=== PATIENT | female | born 1975 | race African-American/Black ===

== ENCOUNTER 2022-03-26 19:24 | Inpatient (IN) | payer BC ==
[2022-03-26] MEDS ORDERED: METOCLOPRAMIDE HCL INJECTION 10 MG/2 ML VIAL IVPUSH ONE (23:17)
[2022-03-26] MEDS ORDERED: ACETAMINOPHEN 1000 MG/100 ML BAG IVPB ONE (23:18)
[2022-03-26] MEDS ORDERED: SODIUM CHLORIDE 0.9% 500 ML INFUS.BAG IV ONE (23:18)
[2022-03-26 23:49] LABS: HEMATOCRIT 41.9 % (32.4-45.2); HEMOGLOBIN 14.5 GM/dL (10.7-15.3); MCHC 34.5 g/dl (32.0-36.0); MEAN CELL VOLUME 112.9 fl (80-96); MEAN PLT VOLUME 8.8 fl (7.5-11.1); PLATELET COUNT 188 10^3/uL (134-434); RBC 3.71 M/mm3 (3.60-5.2); RDW 16.4 % (11.6-15.6); WHITE BLOOD COUNT 6.2 K/mm3 (4.0-10.0)
[2022-03-27 00:26] LABS: CALCIUM 8.9 mg/dL (8.5-10.1)
[2022-03-27 00:27] LABS: ALBUMIN 3.4 g/dl (3.4-5.0); BLOOD UREA NITROGEN 12.4 mg/dL (7-18)
[2022-03-27 00:30] LABS: CREATININE 0.7 mg/dL (0.55-1.3)
[2022-03-27 00:31] LABS: BILIRUBIN,TOTAL 2.8 mg/dL (0.2-1); TOT PROT 7.7 g/dl (6.4-8.2)
[2022-03-27] MEDS ORDERED: MECLIZINE HCL 25 MG TABLET (FP) PO ONE (02:13)
[2022-03-27 04:48] LABS: EPI CELLS 17 /uL (0-25.1); HYALINE CASTS 5 /uL (0-3.1); URINE APPEARANCE CLEAR; URINE BILIRUBIN 2+ (NEGATIVE); URINE COLOR DK YELLOW; URINE GLUCOSE (UA) NEGATIVE (NEGATIVE); URINE KETONE TRACE (NEGATIVE); URINE LEUK ESTERASE TRACE (NEGATIVE); URINE NITRITE POSITIVE (NEGATIVE); URINE PROTEIN 2+ (NEGATIVE); URINE WBC 9 /uL (0-25.8)
[2022-03-27 05:26] LABS: INR 1.95 (0.83-1.09); PROTHROMBIN TIME (PATIENT) 22.6 SEC (9.7-13.0)
[2022-03-27 05:28] LABS: ACTIVATED PTT 28.4 SECONDS (25.2-36.5)
[2022-03-27 07:21] LABS: URINE RBC 30.9 /uL (0-23.9)
[2022-03-27 08:31] LABS: BILIRUBIN,DIRECT 1.5 mg/dL (0.0-0.2)
[2022-03-27] MEDS ORDERED: CEFTRIAXONE 1,000 MG in DEXTROSE 5%-WATER - 50 ML IVPB ONE (08:49)
[2022-03-27] MEDS ORDERED: CEFTRIAXONE 1 GM/50 ML BAG ONE (09:00)
[2022-03-27] MEDS ORDERED: ONDANSETRON 8 MG TABLET (FP) PO PRN (11:04)
[2022-03-27 11:05] LABS: BILIRUBIN,DIRECT 1.6 mg/dL (0.0-0.2)
[2022-03-27] MEDS ORDERED: NAPROXEN 250 MG TABLET PO PRN (11:08)
[2022-03-27] MEDS ORDERED: ACETYLCYSTEINE INJECTION 20% 11,400 MG in DEXTROSE 5%-WATER - 250 ML IVPB ONE (11:15)
[2022-03-27] MEDS ORDERED: ONDANSETRON *ODT* 4 MG TABLET SL PRN (11:24)
[2022-03-27] MEDS ORDERED: ACETYLCYSTEINE INJECTION 20% 3,800 MG in DEXTROSE 5%-WATER - 500 ML IVPB ONE (12:30)
[2022-03-27 12:34] LABS: ALBUMIN 3.2 g/dl (3.4-5.0); BLOOD UREA NITROGEN 11.5 mg/dL (7-18); CALCIUM 8.3 mg/dL (8.5-10.1)
[2022-03-27 12:37] LABS: BILIRUBIN,DIRECT 1.6 mg/dL (0.0-0.2); CREATININE 0.6 mg/dL (0.55-1.3)
[2022-03-27 12:39] LABS: BILIRUBIN,TOTAL 2.5 mg/dL (0.2-1); TOT PROT 7.1 g/dl (6.4-8.2)
[2022-03-27] MEDS ORDERED: PHYTONADIONE 10 MG/1 ML AMP IVPB ONE (13:45)
[2022-03-27] MEDS ORDERED: MECLIZINE HCL 12.5 MG TABLET ONE (13:54)
[2022-03-27] MEDS ORDERED: ONDANSETRON *ODT* 4 MG TABLET ONE (13:54)
[2022-03-27] MEDS: MECLIZINE HCL 12.5 MG TABLET PO SCH ×2 (13:58→23:09)
[2022-03-27] MEDS ORDERED: PHYTONADIONE 10 MG/1 ML AMP ONE (14:01)
[2022-03-27 15:24] LABS: BASO % 0.7 % (0-2.0); EOS % 5.6 % (0-4.5); HEMATOCRIT 40.9 % (32.4-45.2); LYMPH % 17.1 % (8-40); MCH 39.1 pg (25.7-33.7); MCHC 34.3 g/dl (32.0-36.0); MEAN CELL VOLUME 113.9 fl (80-96); MONO % 5.7 % (3.8-10.2); NEUT % 70.9 % (42.8-82.8); PLATELET COUNT 177 10^3/uL (134-434); RBC 3.59 M/mm3 (3.60-5.2); RDW 16.5 % (11.6-15.6); WHITE BLOOD COUNT 4.4 K/mm3 (4.0-10.0)
[2022-03-27 15:31] LABS: INR 1.87 (0.83-1.09); PROTHROMBIN TIME (PATIENT) 21.6 SEC (9.7-13.0)
[2022-03-27 15:50] LABS: ANISOCYTOSIS 2+; MACROCYTOSIS 2+
[2022-03-27] MEDS ORDERED: ACETYLCYSTEINE INJECTION 20% 7,600 MG in DEXTROSE 5%-WATER - 1,000 ML IVPB ONE (16:30)
[2022-03-27] MEDS ORDERED: PANTOPRAZOLE 40 MG TABLET PO ONE (18:06)
[2022-03-27] MEDS: PANTOPRAZOLE 40 MG TABLET PO SCH (18:27)
[2022-03-28] MEDS: MECLIZINE HCL 12.5 MG TABLET PO SCH ×3 (05:49→21:55)
[2022-03-28] MEDS: PANTOPRAZOLE 40 MG TABLET PO SCH (10:04)
[2022-03-28 10:06] LABS: BASO % 0.5 % (0-2.0); EOS % 7.1 % (0-4.5); HEMOGLOBIN 12.7 GM/dL (10.7-15.3); MCH 38.5 pg (25.7-33.7); MCHC 33.5 g/dl (32.0-36.0); MEAN CELL VOLUME 115.1 fl (80-96); MEAN PLT VOLUME 9.7 fl (7.5-11.1); MONO % 10.7 % (3.8-10.2); NEUT % 44.7 % (42.8-82.8); PLATELET COUNT 143 10^3/uL (134-434); RDW 16.9 % (11.6-15.6); WHITE BLOOD COUNT 3.6 K/mm3 (4.0-10.0)
[2022-03-28 10:12] LABS: INR 1.56 (0.83-1.09)
[2022-03-28 10:30] LABS: CHLORIDE 103 mmol/L (98-107); SODIUM 139 mmol/L (136-145)
[2022-03-28 10:33] LABS: ALBUMIN 2.6 g/dl (3.4-5.0)
[2022-03-28 10:36] LABS: BILIRUBIN,DIRECT 1.1 mg/dL (0.0-0.2)
[2022-03-28 10:38] LABS: BILIRUBIN,TOTAL 1.8 mg/dL (0.2-1); TOT PROT 6.1 g/dl (6.4-8.2)
[2022-03-28 10:43] LABS: CALCIUM 8.1 mg/dL (8.5-10.1)
[2022-03-28 10:44] LABS: ALBUMIN 2.7 g/dl (3.4-5.0); BLOOD UREA NITROGEN 5.1 mg/dL (7-18); CO2 24 mmol/L (21-32); GLUCOSE,RANDOM 100 mg/dL (74-106); MAGNESIUM 1.6 mg/dL (1.8-2.4)
[2022-03-28 10:47] LABS: CREATININE 0.5 mg/dL (0.55-1.3); PHOSPHOROUS 2.5 mg/dL (2.5-4.9); SGOT/AST 866 U/L (15-37)
[2022-03-28 10:48] LABS: BILIRUBIN,TOTAL 1.9 mg/dL (0.2-1); TOT PROT 6.2 g/dl (6.4-8.2)
[2022-03-28 10:50] LABS: ALK PHOS 85 U/L (45-117); SGPT/ALT 687 U/L (13-61)
[2022-03-28 10:55] LABS: ANION GAP 12 MMOL/L (8-16)
[2022-03-28 12:43] LABS: OPIATES, URI NEGATIVE (NEGATIVE); PHENCYCLIDINE,URINE NEGATIVE (NEGATIVE); URINE BARBITURATES NEGATIVE (NEGATIVE)
[2022-03-28 12:44] LABS: COCAINE, UR NEGATIVE (NEGATIVE); METHADONE, UR NEGATIVE (NEGATIVE); URINE AMPHETAMINES NEGATIVE (NEGATIVE)
[2022-03-28 12:45] LABS: URINE BENZODIAZEPINES NEGATIVE (NEGATIVE)
[2022-03-28] MEDS: KCL 10 MEQ IVPB 10 MEQ/100 ML INFUS.BAG IVPB SCH ×3 (12:54→17:57)
[2022-03-28] MEDS ORDERED: KCL 10 MEQ IVPB 10 MEQ/100 ML INFUS.BAG IVPB SCH (17:45)
[2022-03-29] MEDS: MECLIZINE HCL 12.5 MG TABLET PO SCH ×3 (06:29→21:39)
[2022-03-29] MEDS: PANTOPRAZOLE 40 MG TABLET PO SCH (09:33)
[2022-03-29 09:56] LABS: INR 1.29 (0.83-1.09); PROTHROMBIN TIME (PATIENT) 14.9 SEC (9.7-13.0)
[2022-03-29 10:18] LABS: ALBUMIN 2.7 g/dl (3.4-5.0)
[2022-03-29 10:20] LABS: TOT PROT 6.2 g/dl (6.4-8.2)
[2022-03-29 10:29] LABS: BILIRUBIN,DIRECT 0.7 mg/dL (0.0-0.2)
[2022-03-29 23:07] LABS: HCV ALPHA 2 MACRO CHART 249 mg/dL (110-276)
[2022-03-30] MEDS: MECLIZINE HCL 12.5 MG TABLET PO SCH ×3 (06:27→21:07)
[2022-03-30 12:25] LABS: CALCIUM 8.3 mg/dL (8.5-10.1)
[2022-03-30 12:26] LABS: ALBUMIN 2.9 g/dl (3.4-5.0); BLOOD UREA NITROGEN 5.4 mg/dL (7-18)
[2022-03-30 12:29] LABS: BILIRUBIN,DIRECT 0.5 mg/dL (0.0-0.2); CREATININE 0.6 mg/dL (0.55-1.3)
[2022-03-30 12:31] LABS: TOT PROT 6.7 g/dl (6.4-8.2)
[2022-03-30 12:32] LABS: BILIRUBIN,TOTAL 1.1 mg/dL (0.2-1)
[2022-03-30 19:03] VITALS: BMI 27.7
[2022-03-31] MEDS: MECLIZINE HCL 12.5 MG TABLET PO SCH ×3 (05:57→21:00)
[2022-03-31] MEDS ORDERED: SODIUM CHLORIDE 500 ML IV STA ×3 (07:33→20:22)
[2022-03-31] MEDS ORDERED: POLYETHYLENE GLYCOL (HEALTHYLAX) 3350 17 GM PACKET PO SCH (09:49)
[2022-03-31 11:29] LABS: ALBUMIN 2.5 g/dl (3.4-5.0); BLOOD UREA NITROGEN 6.8 mg/dL (7-18); CALCIUM 8.3 mg/dL (8.5-10.1)
[2022-03-31 11:32] LABS: CREATININE 0.4 mg/dL (0.55-1.3)
[2022-03-31 11:34] LABS: BILIRUBIN,TOTAL 0.8 mg/dL (0.2-1); TOT PROT 5.8 g/dl (6.4-8.2)
[2022-04-01] MEDS: MECLIZINE HCL 12.5 MG TABLET PO SCH (05:52)
[2022-04-01] MEDS: LACTATED RINGERS SOLUTION 1,000 ML/1,000 ML INFUS.BAG IV SCH (11:20)
[2022-04-01] MEDS ORDERED: FAMOTIDINE 20 MG/50 ML IVPB 20 MG/50 ML MG IVPB ONE (22:41)
[2022-04-01] MEDS: POLYETHYLENE GLYCOL (HEALTHYLAX) 3350 17 GM PACKET PO SCH (22:48)
[2022-04-02] MEDS ORDERED: COSYNTROPIN 0.25 MG VIAL IVPUSH ONE (09:00)
[2022-04-02] MEDS: LACTATED RINGERS SOLUTION 1,000 ML/1,000 ML INFUS.BAG IV SCH (09:09)
[2022-04-02] MEDS: POLYETHYLENE GLYCOL (HEALTHYLAX) 3350 17 GM PACKET PO SCH ×2 (09:10→23:02)
[2022-04-02 13:30] LABS: ALBUMIN 2.6 g/dl (3.4-5.0)
[2022-04-02 13:33] LABS: BILIRUBIN,DIRECT 0.3 mg/dL (0.0-0.2)
[2022-04-02 13:35] LABS: BILIRUBIN,TOTAL 0.7 mg/dL (0.2-1); TOT PROT 5.9 g/dl (6.4-8.2)
[2022-04-02] MEDS ORDERED: PANTOPRAZOLE 40 MG TABLET PO ONE (17:23)
[2022-04-02] MEDS ORDERED: FAMOTIDINE 20 MG TABLET PO SCH (17:30)
[2022-04-03] MEDS: POLYETHYLENE GLYCOL (HEALTHYLAX) 3350 17 GM PACKET PO SCH ×2 (09:07→21:34)
[2022-04-03] MEDS: PANTOPRAZOLE 40 MG TABLET PO SCH (09:08)
[2022-04-03] MEDS ORDERED: PANTOPRAZOLE 40 MG TABLET PO SCH (10:00)
[2022-04-03 18:01] LABS: HEMATOCRIT 33.2 % (32.4-45.2); HEMOGLOBIN 11.1 GM/dL (10.7-15.3); MCH 38.4 pg (25.7-33.7); MCHC 33.4 g/dl (32.0-36.0); MEAN PLT VOLUME 9.7 fl (7.5-11.1); PLATELET COUNT 263 10^3/uL (134-434); RBC 2.89 M/mm3 (3.60-5.2); RDW 16.5 % (11.6-15.6); WHITE BLOOD COUNT 4.5 K/mm3 (4.0-10.0)
[2022-04-03 18:15] LABS: BLOOD UREA NITROGEN 10.2 mg/dL (7-18)
[2022-04-03 18:18] LABS: ALBUMIN 2.7 g/dl (3.4-5.0); CALCIUM 8.9 mg/dL (8.5-10.1); CREATININE 0.5 mg/dL (0.55-1.3)
[2022-04-03 18:20] LABS: BILIRUBIN,TOTAL 0.6 mg/dL (0.2-1); TOT PROT 6.3 g/dl (6.4-8.2)
[2022-04-04 07:53] LABS: EOS % 3.3 % (0-4.5); HEMATOCRIT 31.3 % (32.4-45.2); HEMOGLOBIN 10.4 GM/dL (10.7-15.3); MCH 38.4 pg (25.7-33.7); MCHC 33.4 g/dl (32.0-36.0); MEAN CELL VOLUME 115.1 fl (80-96); MEAN PLT VOLUME 10.2 fl (7.5-11.1); NEUT % 36.7 % (42.8-82.8); PLATELET COUNT 243 10^3/uL (134-434); RBC 2.72 M/mm3 (3.60-5.2); RDW 16.3 % (11.6-15.6); WHITE BLOOD COUNT 4.3 K/mm3 (4.0-10.0)
[2022-04-04 08:25] LABS: CHLORIDE 107 mmol/L (98-107); SODIUM 143 mmol/L (136-145)
[2022-04-04 08:27] LABS: ANION GAP 9 MMOL/L (8-16); BLOOD UREA NITROGEN 8.5 mg/dL (7-18); CALCIUM 8.6 mg/dL (8.5-10.1); CO2 27 mmol/L (21-32); GLUCOSE,RANDOM 82 mg/dL (74-106)
[2022-04-04 08:28] LABS: ALBUMIN 2.5 g/dl (3.4-5.0)
[2022-04-04 08:31] LABS: CREATININE 0.4 mg/dL (0.55-1.3); SGOT/AST 32 U/L (15-37); SGPT/ALT 75 U/L (13-61)
[2022-04-04 08:32] LABS: BILIRUBIN,TOTAL 0.5 mg/dL (0.2-1); TOT PROT 5.8 g/dl (6.4-8.2)
[2022-04-04 08:33] LABS: ALK PHOS 57 U/L (45-117)
[2022-04-04 10:05] LABS: ANISOCYTOSIS 2+; MACROCYTOSIS 2+
[2022-04-04] MEDS: POLYETHYLENE GLYCOL (HEALTHYLAX) 3350 17 GM PACKET PO SCH ×2 (11:18→22:13)
[2022-04-04] MEDS: PANTOPRAZOLE 40 MG TABLET PO SCH (11:18)
[2022-04-04] MEDS: ASPIRIN 81 MG CHEWABLE TABLETS PO SCH (11:18)
[2022-04-04] MEDS ORDERED: METOCLOPRAMIDE HCL INJECTION 10 MG/2 ML VIAL IVPUSH ONE (23:22)
[2022-04-05 07:48] LABS: BASO % 0.7 % (0-2.0); EOS % 2.6 % (0-4.5); HEMATOCRIT 30.5 % (32.4-45.2); HEMOGLOBIN 10.4 GM/dL (10.7-15.3); LYMPH % 40.3 % (8-40); MCH 39.1 pg (25.7-33.7); MCHC 33.9 g/dl (32.0-36.0); MEAN CELL VOLUME 115.3 fl (80-96); MEAN PLT VOLUME 9.7 fl (7.5-11.1); MONO % 9.6 % (3.8-10.2); NEUT % 46.8 % (42.8-82.8); PLATELET COUNT 263 10^3/uL (134-434); RBC 2.65 M/mm3 (3.60-5.2); RDW 16.4 % (11.6-15.6); WHITE BLOOD COUNT 4.5 K/mm3 (4.0-10.0)
[2022-04-05 09:23] LABS: BILIRUBIN,TOTAL 0.5 mg/dL (0.2-1)
[2022-04-05 09:25] LABS: CREATININE 0.5 mg/dL (0.55-1.3)
[2022-04-05 09:27] LABS: ALBUMIN 2.5 g/dl (3.4-5.0); BLOOD UREA NITROGEN 9.5 mg/dL (7-18)
[2022-04-05] MEDS ORDERED: REGADENOSON 0.4 MG/5 ML PRE-FILLED SYRINGE IVPUSH ONE ×2 (09:33→09:45)
[2022-04-05] MEDS: ASPIRIN 81 MG CHEWABLE TABLETS PO SCH (12:51)
[2022-04-05] MEDS: PANTOPRAZOLE 40 MG TABLET PO SCH (12:51)
[2022-04-05] MEDS: CARVEDILOL 3.125 MG TABLET (FP) PO SCH ×2 (12:51→21:36)
[2022-04-05] MEDS: POLYETHYLENE GLYCOL (HEALTHYLAX) 3350 17 GM PACKET PO SCH ×3 (12:51→21:35)
[2022-04-06] MEDS: PANTOPRAZOLE 40 MG TABLET PO SCH (09:49)
[2022-04-06] MEDS: CARVEDILOL 3.125 MG TABLET (FP) PO SCH (09:49)
[2022-04-06] MEDS: ASPIRIN 81 MG CHEWABLE TABLETS PO SCH (09:49)
[2022-04-06] MEDS: POLYETHYLENE GLYCOL (HEALTHYLAX) 3350 17 GM PACKET PO SCH (09:50)
[2022-04-06 14:59] VITALS: BP 114/62; PULSE 68; RESP 18; TEMP 98.3
[2022-04-06] MEDS ORDERED: ROSUVASTATIN CA 10 MG TABLET PO SCH (22:00)
== END 2022-04-06 17:06 | disposition home or self-care (01) | DRG 812 ==
LOC: JER 19:24 → JERBED 03-27 04:19 → OBSVTOIN 03-27 08:33 → J6S 03-27 22:03 → J4W 04-03 14:02
PROVIDERS: ADMIT Internal Medicine; ATTEND Family Medicine
DX: T39.1X1A Poisoning by 4-Aminophenol derivatives, accidental (unintentional), initial encounter (principal); K72.00 Acute and subacute hepatic failure without coma; G43.909 Migraine, unspecified, not intractable, without status migrainosus; N80.8 Other endometriosis; R11.2 Nausea with vomiting, unspecified; J45.909 Unspecified asthma, uncomplicated; K21.9 Gastro-esophageal reflux disease without esophagitis; K80.20 Calculus of gallbladder without cholecystitis without obstruction; R74.01 Elevation of levels of liver transaminase levels; I34.1 Nonrheumatic mitral (valve) prolapse; E27.40 Unspecified adrenocortical insufficiency; I24.9 Acute ischemic heart disease, unspecified; E87.6 Hypokalemia; F17.210 Nicotine dependence, cigarettes, uncomplicated; R94.31 Abnormal electrocardiogram [ECG] [EKG]; Y92.89 Other specified places as the place of occurrence of the external cause; Z98.84 Bariatric surgery status
CPT/HCPCS: 0241U-QW; 36415; 70450-TC; 70552-TC; 71046-TC-FY; 74177-TC; 76705-TC; 78452-TC; 80048; 80053; 80061; 80076; 80307; 81003; 82088; 82140; 82172; 82248; 82533; 82550; 82607; 82728; 82977; 83010; 83036; 83540; 83550; 83690; 83735; 83883; 84100; 84443; 84460; 84484; 84703; 85025; 85027; 85610; 85730; 86704; 86705; 86707; 86708; 86803; 87086; 87340; 87350; 87517; 93005; 93010; 93017; 93306-TC; 99285-25; A9502; G0378; J0834; J2785; Q0162; Q9967